=== PATIENT | male | born 1975 | race Caucasian/White ===

== ENCOUNTER 2017-02-12 13:36 | Emergency (ER) | payer OTHER ==
[2017-02-12] MEDS ORDERED: TORAdol 30 mg Injection IM ONE (14:12)
[2017-02-12] MEDS ORDERED: TORAdol 30 mg Injection ONE (14:20)
--- NOTE | 2017-02-12 14:20 | ERPHSYRPT ---
- History of Present Illness Time Seen by Provider: 02/12/17 14:16 Source: patient Exam Limitations: no limitations Patient Subjective Stated Complaint: pt states at noon he was working at a local [place] where he was operating a piece of eqipment when he struck a concrete block in the roadway. he states there is a metal canopy above him that he struck his head on. states he also struck his right arm. denies any loc. Triage Nursing Assessment: pt is aox3, ambulatory to cot with no difficulties, resps are easy and non labored, skin is pink warm and dry. radial pulses are strong and equal, there is swelling noted to the right distal wrist with a small abrasion, no bleeding at this time, skin intact. range of motion to the r arm is limited due to pain. sensation is intact. cap refill <3 secs. abrasions and swelling noted to the right temporal region of the head. no bleeding at the time. report of pain to right side of head and ear. Physician History: pt states at noon he was working at a local [employer] where he was operating a piece of eqipment when he struck a concrete block in the roadway. he states there is a metal canopy above him that he struck his head on. states he also struck his right arm. denies any loss of consciousness Occurred: just prior to arrival Reason for Fall: lightheaded Injuries/Pain Location: head, upper extremity (right forearm) Allergies/Adverse Reactions: No Known Drug Allergies Allergy (Unverified 02/12/17 14:01) Hx Tetanus, Diphtheria Vaccination/Date Given: No Hx Influenza Vaccination/Date Given: No Hx Pneumococcal Vaccination/Date Given: No Immunizations Up to Date: Yes - Review of Systems Constitutional: No Symptoms Eyes: No Symptoms Ears, Nose, & Throat: No Symptoms Respiratory: No Symptoms Cardiac: No Symptoms Abdominal/Gastrointestinal: No Symptoms Genitourinary Symptoms: No Symptoms Musculoskeletal: Joint Redness (right forearm area), Joint Pain, Joint Swelling , No Deformity - Past Medical History Pertinent Past Medical History: No - Past Surgical History Past Surgical History: Yes Musculoskeletal: Other Other Surgical History: pin in the left hip as a child - Social History Smoking Status: Current every day smoker Drug Use: none Patient Lives Alone: No - Nursing Vital Signs Nursing Vital Signs: Initial Vital Signs Temperature 98.0 F 02/12/17 13:44 Pulse Rate 88 02/12/17 13:44 Respiratory Rate 20 02/12/17 13:44 Blood Pressure 131/91 02/12/17 13:44 O2 Sat by Pulse Oximetry 99 02/12/17 13:44 Pain Scale Pain Intensity 7 - Wolcott Coma Score Best Eye Response (Solomon): (4) open spontaneously Best Verbal Response (Solomon): (5) oriented Best Motor Response (Solomon): (6) obeys commands Wolcott Total: 15 - Physical Exam General Appearance: no apparent distress Head Injury: swelling (right side temporal area over ear) ENT Exam: airway nml SpO2: 99 Oxygen Delivery: Room Air - Radiology Exams Forearm X-ray Interpretation: Reviewed by me, Negative, No Fracture - CT Exams Head CT Interpretation: Tele-radiologist Report (no acute abnormality) Ordered Tests: Active Orders 24 hr Category Date Time Status FOREARM Stat Exams 02/12/17 13:51 Taken HEAD WITHOUT CONTRAST [CT] Stat Exams 02/12/17 13:50 Taken Medication Summary Discontinued Medications Generic Name Dose Route Start Last Admin Trade Name Christina PRN Reason Stop Dose Admin Ketorolac Tromethamine 60 mg 02/12/17 14:12 02/12/17 14:22 Toradol 30 Mg Injection IM 02/12/17 14:13 60 mg STAT ONE Administration Ketorolac Tromethamine Confirm 02/12/17 14:20 Toradol 30 Mg Injection Administered 02/12/17 14:21 Dose 60 mg .ROUTE .STK-MED ONE - Progress Progress: improved, pain not gone completely Counseled pt/family regarding: diagnosis, need for follow-up, rad results - Departure Time of Disposition: 14:52 Departure Disposition: Home Clinical Impression: Head injury without concussion or intracranial hemorrhage Qualifiers: Encounter type: initial encounter Qualified Code(s): S09.90XA - Unspecified injury of head, initial encounter Forearm contusion Qualifiers: Encounter type: initial encounter Laterality: right Qualified Code(s): S50.11XA - Contusion of right forearm, initial encounter Condition: Stable Critical Care Time: No Referrals: MARY KATE BENNETT [ACTIVE STAFF] - Instructions: Closed Head Injury, Contusion Additional Instructions: SPRAINS/STRAINS/CONTUSIONS 1. Rest the affected area as much as possible for the next few days. 2. Apply ice to the affected area for 20-30 minutes at a time, several times a day. 3. If you receive an elastic wrap, wear it only while awake for comfort and support. Re-wrap the elastic wrap if it feels too tight or too loose. 4. If swelling is present, elevate the affected part above the level of the heart for at least 2 to 3 days. 5. Use splints, slings, or crutches as instructed. 6. Watch for severe swelling, coldness, numbness, and discoloration of the fingers and toes. See your family physician or return to the emergency department if any of these are noted. Please follow the instructions given to you. Please take your medication as prescribed if given. If symptoms recur or get worse, come back to the emergency room if you cannot reach your primary care physician, or call your primary care physician for an appointment. Again if your symptoms get worse, come back to the emergency room. Thanks for visiting emergency room, and let us take care of you. Forms: Work/School Release Form Prescriptions: Naproxen 375 mg [Naprosyn 375 mg] 375 mg PO Q8H #30 tablet
[2017-02-12 14:26] VITALS: PULSE 80; O2SAT 98
[2017-02-12 15:36] VITALS: BP 132/80
--- NOTE | 2017-02-12 20:03 | XRAY ---
Indication: Pain following injury. Comparison: None 2 views of the right forearm obtained. No bony, articular, or soft tissue abnormalities.
--- NOTE | 2017-02-12 20:03 | XRAY ---
Indication: Bilateral temporal pain following head injury. Multiple contiguous axial images obtained through the head without contrast. Comparison: None Minimal right parietal scalp soft tissue swelling. Normal appearing brain parenchyma, ventricles, and bony calvarium. Visualized paranasal sinuses and mastoid air cells are clear. Impression: No acute intracranial abnormalities. Comment: Preliminary interpretation was made by [facility]. No discrepancy. CTDI 50.38
== END 2017-02-12 15:30 | disposition home or self-care (01) ==
LOC: ED 13:36
DX: S09.90XA Unspecified injury of head, initial encounter (principal); S50.11XA Contusion of right forearm, initial encounter; S00.81XA Abrasion of other part of head, initial encounter; W22.8XXA Striking against or struck by other objects, initial encounter; Y92.64 Mine or pit as the place of occurrence of the external cause; Y99.0 Civilian activity done for income or pay
CPT/HCPCS: 70450; 73090; 96372; 99284; J1885

== ENCOUNTER 2021-07-21 13:15 | Day surgery (SDC) | payer OTHER ==
[2021-07-21] MEDS ORDERED: Depo-Medrol 40 MG/ML IM ONE (13:16)
[2021-07-21] MEDS ORDERED: BUPIVACAINE 0.5% VIAL IJ ONE (13:16)
[2021-07-21] MEDS ORDERED: Lactated Ringers 1,000 ML IV ONE (15:27)
[2021-07-21] MEDS ORDERED: DIPRIVAN 200 MG/20 ML IV ONE (16:16)
--- NOTE | 2021-07-21 16:51 | XRAY ---
Indication: Left SI joint injection. Intraoperative fluoroscopy provided for 11 seconds. 2 digital spot images submitted for interpretation demonstrates posterior needle tips projecting over the inferior left SI joint. Correlate with intraoperative findings/report.
--- NOTE | 2021-07-21 17:01 | XRAY ---
11 seconds fluoroscopy time in surgery for injection of the left SI joint.
== END 2021-07-21 16:15 | disposition home or self-care (01) ==
LOC: SDC-PAIN 13:15
PROVIDERS: ATTEND Psychiatry & Neurology Pain Medicine
DX: M46.1 Sacroiliitis, not elsewhere classified (principal); I10 Essential (primary) hypertension; Z79.899 Other long term (current) drug therapy
CPT/HCPCS: 27096; 72020; 77002; J1030; J2704; G0260

== ENCOUNTER 2022-02-16 13:01 | Day surgery (SDC) | payer OTHER ==
[2022-02-16] MEDS ORDERED: Decadron 4 MG INJ IV ONE (13:02)
[2022-02-16] MEDS ORDERED: LIDOCAINE HCL 2% 100 MG/5 ML IJ ONE (13:02)
[2022-02-16] MEDS ORDERED: ENALAPRILAT 2.5 MG INJECTION IV ONE (13:44)
[2022-02-16] MEDS ORDERED: Versed 2 MG/2 ML Injection ONE (14:58)
[2022-02-16] MEDS ORDERED: DIPRIVAN 200 MG/20 ML IV ONE (15:25)
[2022-02-16] MEDS ORDERED: Lactated Ringers 1,000 ML IV ONE (15:52)
--- NOTE | 2022-02-16 16:45 | XRAY ---
Indication: Left C2-C4 MBB. Intraoperative fluoroscopy provided for 16 seconds. 2 digital spot image submitted for interpretation demonstrates posterior needle tips projecting over the expected left C2-C4 nerve roots. Correlate with intraoperative findings/report.
--- NOTE | 2022-02-16 16:58 | XRAY ---
16 seconds fluoroscopy time in surgery for left C2-C4 MBB.
== END 2022-02-16 16:10 | disposition home or self-care (01) ==
LOC: SDC-PAIN 13:01
PROVIDERS: ATTEND Psychiatry & Neurology Pain Medicine
DX: M47.812 Spondylosis without myelopathy or radiculopathy, cervical region (principal); Z79.899 Other long term (current) drug therapy
CPT/HCPCS: 64490; 64491; 72040; 77002; J1100; J2250; J2704

== ENCOUNTER 2022-03-02 06:52 | Day surgery (SDC) | payer OTHER ==
[2022-03-02] MEDS ORDERED: Decadron 4 MG INJ IV ONE (06:53)
[2022-03-02] MEDS ORDERED: BUPIVACAINE 0.5% VIAL IJ ONE (06:53)
[2022-03-02] MEDS ORDERED: Versed 2 MG/2 ML Injection ONE (07:43)
[2022-03-02] MEDS ORDERED: DIPRIVAN 200 MG/20 ML IV ONE (08:24)
--- NOTE | 2022-03-02 09:48 | XRAY ---
Indication: Left C2-C4 MBB. Intraoperative fluoroscopy provided for 18 seconds. 3 digital spot images submitted for interpretation demonstrates posterior needle tips projecting over the left C2-C4 nerve roots. Correlate with intraoperative findings/report.
[2022-03-02] MEDS ORDERED: Lactated Ringers 1,000 ML IV ONE (10:01)
--- NOTE | 2022-03-02 12:32 | XRAY ---
18 seconds of fluoroscopy was used in surgery for a left C2-C4 MBB.
== END 2022-03-02 08:48 | disposition home or self-care (01) ==
LOC: SDC-PAIN 06:52
PROVIDERS: ATTEND Psychiatry & Neurology Pain Medicine
DX: M47.812 Spondylosis without myelopathy or radiculopathy, cervical region (principal)
CPT/HCPCS: 64490; 64491; 72040; 77002; J1100; J2250; J2704

== ENCOUNTER 2022-03-23 14:04 | Day surgery (SDC) | payer OTHER ==
[2022-03-23] MEDS ORDERED: LIDOCAINE HCL 2% 100 MG/5 ML IJ ONE (14:05)
[2022-03-23] MEDS ORDERED: Decadron 4 MG INJ IV ONE (14:05)
[2022-03-23] MEDS ORDERED: Lactated Ringers 1,000 ML IV ONE (18:09)
--- NOTE | 2022-03-23 19:29 | XRAY ---
Indication: Right C2-C4 MBB. Intraoperative fluoroscopy provided for 23 seconds. 2 digital spot submitted for interpretation demonstrates posterior needle tips projecting over the expected right C2-C4 nerve roots. Correlate with intraoperative findings/report.
--- NOTE | 2022-03-23 20:03 | XRAY ---
23 seconds of fluoroscopy was used in surgery for a right C2-C4 MBB.
== END 2022-03-23 16:40 | disposition home or self-care (01) ==
LOC: SDC-PAIN 14:04
PROVIDERS: ATTEND Psychiatry & Neurology Pain Medicine
DX: M47.812 Spondylosis without myelopathy or radiculopathy, cervical region (principal)
CPT/HCPCS: 64490; 64491; 72040; 77002; J1100

== ENCOUNTER 2022-04-07 06:58 | Day surgery (SDC) | payer OTHER ==
[2022-04-07] MEDS ORDERED: BUPIVACAINE 0.5% VIAL IJ ONE (06:59)
[2022-04-07] MEDS ORDERED: Decadron 4 MG INJ IV ONE (06:59)
[2022-04-07] MEDS ORDERED: Versed 2 MG/2 ML Injection ONE (07:24)
[2022-04-07] MEDS ORDERED: DIPRIVAN 200 MG/20 ML IV ONE (08:31)
--- NOTE | 2022-04-07 09:49 | XRAY ---
20 seconds fluoroscopy time in surgery for right C2-C4 MBB.
--- NOTE | 2022-04-07 09:57 | XRAY ---
Indication: Right C2-C4 MBB. Intraoperative fluoroscopy provided for 20 seconds. 3 digital spot images submitted for interpretation demonstrates posterior needle tips projecting over the expected right C2-C4 nerve roots. Correlate with intraoperative findings/report.
[2022-04-07] MEDS ORDERED: Lactated Ringers 1,000 ML IV ONE (10:28)
== END 2022-04-07 09:05 | disposition home or self-care (01) ==
LOC: SDC-PAIN 06:58
PROVIDERS: ATTEND Psychiatry & Neurology Pain Medicine
DX: M47.812 Spondylosis without myelopathy or radiculopathy, cervical region (principal); Z79.899 Other long term (current) drug therapy
CPT/HCPCS: 64490; 64491; 72040; 77002; J1100; J2250; J2704

== ENCOUNTER 2024-07-03 05:59 | Day surgery (SDC) | payer OTHER ==
[2024-07-03] MEDS: Lactated Ringers 1,000 ML IV SCH (06:51)
[2024-07-03 07:00] LABS: ANION GAP 15.7 MEQ/L (5-15); Calcium 9.5 mg/dL (8.4-10.2); Potassium 4.2 mmol/L (3.5-5.1)
[2024-07-03] MEDS ORDERED: propofoL IV ONE (07:31)
[2024-07-03] MEDS ORDERED: Versed 2 MG/2 ML Injection ONE (07:32)
[2024-07-03] MEDS ORDERED: SUBLIMAZE 100 MCG/2 ML ONE (07:32)
[2024-07-03 08:08] VITALS: RESP 18
[2024-07-03 08:19] VITALS: BP 129/88; PULSE 72; TEMP 97.1; O2SAT 97
--- NOTE | 2024-07-05 10:03 | OP ---
SURGERY DATE/TIME: 07/03/2024 [id number] PREOPERATIVE DIAGNOSIS: Gastroesophageal reflux disease. POSTOPERATIVE DIAGNOSIS: Moderate gastritis. PROCEDURE: Esophagogastroduodenoscopy. SURGEON: James Small MD. ANESTHESIA: MAC, by Brody Gregg CRNA. ESTIMATED BLOOD LOSS: Minimal. SPECIMENS: There are 2 cold forceps biopsies from the gastric antrum sent for H pylori testing. DESCRIPTION OF PROCEDURE AND FINDINGS: After informed written consent was obtained, the patient was taken to the endoscopy suite. He was placed in the left lateral decubitus position and a bite block was inserted. Anesthesia was titrated to the desired level of consciousness, and the endoscope was inserted into the posterior oropharynx. Under direct visualization, the esophagus was easily traversed. Esophageal mucosa had a normal appearance. No lesions or defects. Upon entry into the stomach, there was normal rugae of gastric mucosa. No evidence of bleeding. No masses. No obvious ulcerations, although there were moderate gastritis-type changes in the gastric antrum. Pylorus was traversed, and the duodenum had a normal mucosal appearance. Two cold forceps biopsies were taken from the gastric antrum and sent for H pylori testing. The remainder of the exam again was unremarkable upon withdrawal of the scope. The scope was removed, and the patient was transferred to the recovery room in good condition. I have advised that he avoid all NSAIDs, and instructions were reviewed with his directly after the procedure. He is to continue pantoprazole and follow up in 1 week for pathology results.
== END 2024-07-03 08:25 | disposition home or self-care (01) ==
LOC: SDC 05:59
PROVIDERS: ATTEND Family Medicine
DX: K29.70 Gastritis, unspecified, without bleeding (principal); K21.9 Gastro-esophageal reflux disease without esophagitis
CPT/HCPCS: 36415; 80048; 93005; J2250; J2704; J3010